=== PATIENT | female | born 1995 | race African-American/Black ===

== ENCOUNTER 2021-06-01 17:13 | Emergency (ER) | payer MEDICAID ==
[~2021-06-01] VITALS: Ht 165.1 cm; Wt 117.0 kg
[2021-06-01] MEDS ORDERED: SODIUM CHLORIDE 0.9% 1,000 ML IV ONE (18:00)
[2021-06-01 18:46] LABS: BASOPHILS % 0.7 % (0.0-2.0); EOSINOPHILS % 0.3 % (0.0-5.0); HEMATOCRIT. 37.2 % (36.0-48.0); HEMOGLOBIN. 12.3 g/dL (12.0-16.0); LYMPHOCYTES % 23.8 % (20.0-50.0); MEAN CORPUSCULAR HEMOGLOBIN 26.4 pg (28.0-32.0); MEAN CORPUSCULAR VOLUME 79.6 fL (81.0-99.0); MEAN PLATELET VOLUME 9.5 fl (7.4-10.4); MONOCYTES % 6.9 % (2.0-8.0); NEUTROPHILS % 68.3 % (40.0-76.0); PLATELET 354 x1000/uL (130-400); RED BLOOD CELL COUNT 4.67 mill/uL (4.2-5.4); RED CELL DISTRIBUTION WIDTH 15.4 % (11.6-14.6)
[2021-06-01 18:48] LABS: CHLORIDE 104 mEq/L (98-107)
[2021-06-01 18:51] LABS: HCG SCREEN NEGATIVE
[2021-06-01 18:53] LABS: ETHANOL BLOOD < 10 mg/dL
[2021-06-01 19:56] LABS: CLARITY URINE TURBID (CLEAR); COLOR URINE YELLOW (YELLOW); KETONES URINE NEGATIVE (NEGATIVE); LEUKOCYTE ESTERASE URINE 1+ (NEGATIVE); NITRITE URINE NEGATIVE (NEGATIVE); OCCULT BLOOD URINE 1+ (NEGATIVE); PH URINE 5.5 (4.5-8.0); PROTEIN URINE NEGATIVE (NEGATIVE); SPECIFIC GRAVITY URINE 1.011 (1.005-1.030); UROBILINOGEN URINE 0.2 E.U./dL (0.2-1.0)
[2021-06-01 20:43] LABS: METHADONE URINE SCREEN NEGATIVE (NEGATIVE); OPIATES URINE SCREEN NEGATIVE (NEGATIVE); PHENCYCLIDINE URINE SCREEN NEGATIVE (NEGATIVE)
[2021-06-01 20:44] LABS: *AMPHETAMINES SCREEN URINE NEGATIVE (NEGATIVE); *BARBITURATES SCREEN URINE NEGATIVE (NEGATIVE); *BENZODIAZEPINES SCREEN URINE NEGATIVE (NEGATIVE); *COCAINE SCREEN URINE NEGATIVE (NEGATIVE); CANNABINOID URINE SCREEN NEGATIVE (NEGATIVE)
[2021-06-01] MEDS ORDERED: CEFTRIAXONE 1 G PREMIX 50 ML IV ONE (21:45)
[2021-06-01] MEDS ORDERED: CEPH500C2 MT (22:46)
[2021-06-01 22:50] VITALS: BP 123/81
== END 2021-06-01 23:36 | disposition home or self-care (01) ==
LOC: ER 17:13
DX: N39.0 Urinary tract infection, site not specified (principal); R46.2 Strange and inexplicable behavior
CPT/HCPCS: 36415; 70450; 80053; 80305; 80307; 80320; 80329; 81003; 84443; 84703; 85025; 93005; 96361; 96365; 99285; J0696; J7030; G0480